=== PATIENT | female | born 1970 | race Two or more races ===

== ENCOUNTER 2020-04-22 11:46 | Outpatient (CLI) | payer OTHER | END 2020-04-22 12:04 | disposition home or self-care (01) | LOC: RAD 11:46 | PROVIDERS: ATTEND Orthopaedic Surgery | DX: M25.562 Pain in left knee (principal); M23.92 Unspecified internal derangement of left knee | CPT/HCPCS: 73721 ==

== ENCOUNTER 2021-07-05 07:24 | Outpatient (CLI) | payer OTHER | END 2021-07-05 07:39 | disposition home or self-care (01) | LOC: MAMO-SONO 07:24 | PROVIDERS: ATTEND Internal Medicine Endocrinology, Diabetes & Metabolism | DX: R73.03 Prediabetes (principal); R31.21 Asymptomatic microscopic hematuria; K76.1 Chronic passive congestion of liver; N64.1 Fat necrosis of breast; M54.2 Cervicalgia; M54.50 Low back pain, unspecified ==